=== PATIENT | male | born 1955 | race Hispanic/Latino ===

== ENCOUNTER 2016-09-25 13:52 | Emergency (ER) | payer MEDICARE, OTHER, MEDICAID ==
[~2016-09-25] VITALS: Ht 165.1 cm; Wt 72.0 kg
[2016-09-25 14:55] LABS: HEMATOCRIT 31.6 % (39.0-50.0); HEMOGLOBIN 9.8 g/dl (14.0-18.0); IMMATURE GRANULOCYTES 0.4 % (0.0-1.0); MEAN CELL VOLUME 92.4 fL CALC (80.0-100.0); MEAN CORPUSCULAR HGB 28.7 pG CALC (26.0-32.0); NEUT# 6.12 thou/uL (1.82-7.42); RED BLOOD COUNT 3.42 mill/uL (4.70-6.10); RED CELL DISTRI WIDTH 18.6 % (11.5-15.5)
[2016-09-25 15:03] LABS: ALBUMIN 3.1 g/dL (3.2-5.0); BILIRUBIN, TOTAL 0.7 mg/dL (0.0-1.4); POTASSIUM 4.1 mmol/l (3.5-5.1)
[2016-09-25 15:06] LABS: CREATININE 6.8 mg/dL (0.7-1.3)
[2016-09-25] MEDS ORDERED: GABAPENTIN300 MG PO (15:07)
[2016-09-25] MEDS ORDERED: RENVELA800 MG PO (15:07)
[2016-09-25] MEDS ORDERED: LEVOTHYROXIN50 MCG PO (15:08)
[2016-09-25] MEDS ORDERED: PRAVASTATIN10 MG PO (15:08)
[2016-09-25] MEDS ORDERED: IMODIUM2 MG PO (15:09)
[2016-09-25] MEDS ORDERED: CLOPIDOGREL75 MG PO (15:09)
[2016-09-25] MEDS ORDERED: PANTOPRAZOLE SO40 MG PO (15:09)
[2016-09-25] MEDS ORDERED: ASPIRIN EC81 MG PO (15:10)
[2016-09-25 16:38] LABS: C. DIFFICILE TOXIN A&B NEGATIVE (NEGATIVE)
[2016-09-25] MEDS ORDERED: LOMOTIL2.5 MG PO (17:58)
[2016-09-25 18:07] VITALS: BP 110/55
== END 2016-09-25 18:23 | disposition home or self-care (01) ==
LOC: ED 13:52
PROVIDERS: Emergency Medicine
DX: A04.7 Enterocolitis due to Clostridium difficile (principal); I12.0 Hypertensive chronic kidney disease with stage 5 chronic kidney disease or end stage renal disease; N18.6 End stage renal disease; Z99.2 Dependence on renal dialysis; R94.31 Abnormal electrocardiogram [ECG] [EKG]